=== PATIENT | male | born 1945 | race Caucasian/White ===

== ENCOUNTER 2016-08-31 06:53 | Inpatient (IN) | payer MEDICARE, BC ==
--- NOTE | 2016-08-30 01:56 | HP ---
HISTORY AND PHYSICAL: DATE OF ADMISSION: 08/31/16 CHIEF COMPLAINT: History and physical for a right total knee arthroplasty. HISTORY OF PRESENT ILLNESS: Mr. Haque is a 70-year-old male who presents with advanced arthritis of his right knee. He states that his pain is a 4/10. He states that he continues to have swelling in his knee. Walking for any sort of distance and stairs causes pain. He has failed conservative management and will proceed with elective right total knee arthroplasty. PAST MEDICAL HISTORY: Panic attacks, depression. PAST SURGICAL HISTORY: 1. T and A. 2. ORIF of the left arm. 3. Right knee arthroscopy. 4. Left knee total arthroplasty. MEDICATIONS: 1. ALYSA antiembolism stockings knee length, one pair of large strength 20 to 30 mmHg. 2. Lexapro 20 mg one by mouth every day. 3. Trazodone 100 mg one by mouth every night at bedtime. 4. Glucosamine chondroitin complex twice a day by mouth. 5. Vitamin 50,000 units one cap per week for 8 weeks. 6. Bacitracin polymyxin B 500-10,000 units per gram apply a thin half inch ribbon as directed 3 times a day for 7 days. ALLERGIES: KEFLEX. FAMILY HISTORY: Heart disease in father. Mother with diabetes and cancer and hypertension. Brother colon and liver cancer. SOCIAL HISTORY: The patient lives with his , currently working. Drinks occasionally only at social events. No tobacco or recreational drug use. REVIEW OF SYSTEMS: General: The patient denies any fevers, chills, or night sweats. No anesthesia problems. HEENT: Denies any headaches, lightheadedness , or syncopal episode. Cardiothoracic: Denies any chest pain, heart palpitations, or edema. Pulmonary: Denies any shortness of breath with exertion, chronic cough, or COPD. GI: Denies any nausea, vomiting, diarrhea, or constipation. : Denies any nocturia, urinary frequency, urinary urgency or kidney issues. MSK: Admits to right knee pain and denies any chronic or intermittent back pain or fractures. Neuro: Denies any paresthesias, numbness, seizures, stroke, or epilepsy. Integument: Denies any abrasions, lesions, rashes, bumps, or open sores. Endocrine: Denies any diabetes or thyroid issues. Hematology: Denies any easy bruising, anemia, or excessive bleeding. PHYSICAL EXAMINATION GENERAL: The patient is alert and oriented, appears in no acute distress. HEENT: Normocephalic and atraumatic. Hearing and vision are grossly intact. PULMONARY: Lungs are clear to auscultation bilaterally with no wheezes, rales, or rhonchi. CARDIO: Regular rate and rhythm with a normal S1 and S2. No appreciable S3 or S4. No murmurs, rubs, or gallops. GI: Normoactive bowel sounds is all 4 quadrants. No pain to palpation in all 4 quadrants. MSK: Right lower extremity, the patient's skin is intact. The patient has moderate effusion of the knee joint. He has active extension and range of motion 5 to 125 degrees of flexion. 5/5 ankle dorsiflexion and plantarflexion strength with full sensation to light touch in all nerve distributions with a 2 + palpable dorsalis pedis pulse. ASSESSMENT: Right knee osteoarthritis. PLAN: Mr. Haque is a 70-year-old gentleman with advanced arthritis in the right knee joint. Today, we discussed total knee arthroplasty. He has failed conservative treatment and is an appropriate candidate. He is scheduled for surgery on 08/31/16 for a right total knee arthroplasty. The patient had a prescription for Percocet sent to the pharmacy record for postoperative pain management. Scripts for Coumadin and postop DVT prophylaxis and Colace to be used as needed for constipation, also E-scripted. The patient will return in 10 to 14 days for suture removal and followup. An x-ray will be obtained at the followup visit. ANA REDMOND [id number]/[facility] #: [id number] EZEQUIEL
[~2016-08-31 06:53] MED LIST: Buffered Lidocaine 1% SYR 3ML* 3 ML/SYR SYRINGE INTRADERM ONE; Famotidine IV* 10 MG/ML 2 ML (20 mg) IV ONE
[2016-08-31] MEDS ORDERED: Famotidine IV* 10 MG/ML 2 ML (20 mg) ONE (07:30)
[2016-08-31] MEDS ORDERED: Clindamycin 900 MG IVPREMIX(* 900 MG/50 ML SDV IV ONE (07:30)
[2016-08-31] MEDS ORDERED: Buffered Lidocaine 1% SYR 3ML* 3 ML/SYR SYRINGE ONE (07:30)
[2016-08-31] MEDS ORDERED: Bupivacaine 0.5% W/EPI SDV* 30 ML VIAL ONE (07:34)
[2016-08-31] MEDS ORDERED: ROPIVACAINE 5 MG/ML 30 ML BTL (0.5%) ONE (08:16)
[2016-08-31] MEDS ORDERED: fentaNYL* 50 MCG/ML 2 ML VIAL (100 MCG VIAL) ONE (08:17)
[2016-08-31] MEDS ORDERED: Midazolam* 1 MG/ML 5 ML VIAL (5 MG) ONE (08:17)
[2016-08-31] MEDS ORDERED: Morphine PF AMP (0.5MG/ML)* 5 MG/10 ML AMP ONE (08:18)
[2016-08-31] MEDS ORDERED: KETAMINE HCL* 50 MG/ML 10 ML VIAL ONE (08:54)
[2016-08-31] MEDS ORDERED: Dexamethasone IV* 4 MG/ML 1 ML (4 MG) ONE (09:24)
[2016-08-31] MEDS ORDERED: Lidocaine 2% MPF* 2 ML VIAL ONE (09:24)
[2016-08-31] MEDS ORDERED: Propofol* 10 MG/ML 20 ML BTL IV PUSH ONE (09:24)
[2016-08-31] MEDS ORDERED: Ketorolac INJ* 30 MG/ML 1 ML VIAL ONE (09:24)
[2016-08-31] MEDS ORDERED: Ondansetron INJ* 2 MG/ML VIAL ONE (09:24)
[2016-08-31] MEDS ORDERED: DiMENhydriNATE IV* 50 MG/ML VIAL IV PUSH PRN ×2 (10:10→11:00)
[2016-08-31] MEDS ORDERED: HYDROmorphone INJ* 1 MG/ML CARPUJECT SYRINGE IV PRN (10:10)
[2016-08-31] MEDS ORDERED: oxyCODONE/Acetamin 5/325 MG* TAB PO PRN ×2 (10:10→10:21)
[2016-08-31] MEDS ORDERED: Naloxone* 0.4 MG/ML 1 ML VIAL IV PRN (10:21)
[2016-08-31] MEDS ORDERED: Nalbuphine* 20 MG/ML 1 ML VIAL IV PRN (10:21)
[2016-08-31] MEDS ORDERED: Gabapentin CAP(*) 300 MG PO SCH (11:00)
[2016-08-31] MEDS ORDERED: oxyCODONE TAB* 5 MG TAB PO PRN (11:41)
[2016-08-31] MEDS ORDERED: Acetaminophen TAB* 325 MG PO PRN (11:41)
[2016-08-31] MEDS ORDERED: diPHENhydraMINE PO* 25 MG PO PRN (11:41)
[2016-08-31] MEDS ORDERED: Morphine INJ* 2 MG/ML 1 ML CARPUJECT IV PRN (11:41)
[2016-08-31] MEDS ORDERED: Bisacodyl SUPP* 10 MG SUPP PR PRN (11:41)
[2016-08-31] MEDS ORDERED: Ondansetron INJ* 2 MG/ML VIAL IV PRN (11:41)
[2016-08-31] MEDS ORDERED: Gabapentin CAP(*) 300 MG ONE (11:44)
--- NOTE | 2016-08-31 13:50 | RAD ---
Indication: Right knee hemiarthroplasty. 2 views of the right knee demonstrates right knee replacement in satisfactory position. Components appear to be well seated. IMPRESSION: Right knee replacement in satisfactory position.
[2016-08-31] MEDS ORDERED: Warfarin TAB(*) 6 MG PO ONE (17:00)
[2016-08-31] MEDS: Clindamycin 600 MG IVPREMIX(* 600 MG/50 ML SDV IV SCH (17:25)
[2016-08-31] MEDS: Ibuprofen TAB* 600 MG PO SCH ×2 (17:26→22:50)
[2016-08-31] MEDS ORDERED: Bacitracin OPHTH.OINT* 3.5 GM SCH (18:00)
[2016-08-31] MEDS ORDERED: traZODone TAB* 100 MG PO SCH (18:00)
[2016-08-31] MEDS: Docusate CAP* 100 MG PO SCH (20:59)
[2016-08-31] MEDS: Bacitracin OPHTH.OINT* 3.5 GM SCH (22:50)
[2016-08-31] MEDS: traZODone TAB* 100 MG PO SCH (22:50)
[2016-09-01] MEDS: Clindamycin 600 MG IVPREMIX(* 600 MG/50 ML SDV IV SCH ×2 (01:16→09:12)
[2016-09-01] MEDS: oxyCODONE/Acetamin 5/325 MG* TAB PO PRN ×5 (01:20→20:14)
[2016-09-01] MEDS: Ibuprofen TAB* 600 MG PO SCH ×2 (05:36→11:30)
[2016-09-01 06:45] LABS: Hematocrit 31 % (42-52); Hemoglobin 10.7 g/dl (14.0-18.0)
[2016-09-01 06:58] LABS: BUN/Creatinine Ratio 21.9 (8-20); Calcium 7.9 mg/dL (8.6-10.3); EGFR African American 137.4 (>60); EGFR Non-African American 106.8 (>60); Potassium 3.7 mmol/L (3.5-5.0)
--- NOTE | 2016-09-01 07:43 | PN ---
Progress Note - Progress Note SOAP: Subjective: Pt. reports pain is controlled, he stood up yesterday. Objective: RLE - drain removed, tip intact, 400 ss drainage. Drain site draining mod amount fluid. mod effusion at knee joint. dressing changed. distally + df/pf , full sens lt, 2+ dp pulse. Vital Signs: Temp Pulse Resp BP Pulse Ox 97.4 F 63 18 91/50 97 09/01/16 03:23 09/01/16 03:23 09/01/16 05:36 09/01/16 03:23 09/01/16 03:23 Laboratory Results - last 24 hr 09/01/16 09/01/16 09/01/16 06:15 06:15 06:15 Hgb 10.7 L Hct 31 L INR (Anticoag Therapy) 1.37 H Sodium 136 Potassium 3.7 Chloride 103 Carbon Dioxide 30 Anion Gap 3 BUN 16 Creatinine 0.73 Est GFR ( Amer) 137.4 Est GFR (Non-Af Amer) 106.8 BUN/Creatinine Ratio 21.9 H Glucose 101 H Calcium 7.9 L Assessment: 70 yo M pod 1 s/p RTKA Plan: Nursing to reinforce dressing with compression at drain site if drainage continues. 6 mg coumadin tonight, lovenox bridge. PT/OT wbat
[2016-09-01] MEDS: Docusate CAP* 100 MG PO SCH ×2 (08:12→20:14)
[2016-09-01] MEDS: CMC:Escitalopram (NF) 10 MG TAB PO SCH (08:13)
[2016-09-01] MEDS: Vitamin THERAPEUTIC TAB PO SCH (08:14)
[2016-09-01] MEDS ORDERED: Enoxaparin(*) 40 MG/0.4 ML SYR SUBCUT SCH (10:00)
--- NOTE | 2016-09-01 15:11 | OP ---
DATE OF OPERATION: 08/31/16 - ROOM #347 DATE OF : 49 SURGEON: Sydney Lazar MD FLOAT BUILDER: ANA Stuart ANESTHESIOLOGIST: Dr. Marcus. ANESTHESIA: Spinal with adductor nerve block. PRE-OP DIAGNOSES: Right knee severe degenerative osteoarthritis and recurrent effusions. POST-OP DIAGNOSES: Right knee severe degenerative osteoarthritis, IT band chronic incompetence. OPERATIVE PROCEDURE: Right total knee arthroplasty. TOURNIQUET TIME: 68 minutes. ESTIMATED BLOOD LOSS: 250 cc. COMPLICATIONS: None. SPECIMEN: Bone and cartilage sent to pathology from the right knee joint. HARDWARE USED: [employer] cemented total knee hardware. For the femur, a size 6 right posterior stabilized Legion Oxinium femoral component. For the tibia, a size 6 right tibial baseplate. For the insert, a 13-mm constrained articular insert a size 5/6. For the patella, a 38 mm 3-peg all-poly patella. BRIEF HISTORY/INDICATION: Mr. Haque is a 70-year-old gentleman with years of increasingly severe right knee pain, instability, and effusion. Radiograph showed [id number] contact in the medial compartment. The patient had large effusions, however, an MRI showed intact extensive mechanism and ligaments. He elected to undergo right total knee arthroplasty due to continued pain and decreased quality of life. Informed consent was obtained from the patient. He understood the risks of surgery included, but were not limited to bleeding, infection, damage to nearby structures, continued pain, need for further surgery , intraoperative fracture, nerve palsy, hardware failure or loosening, stroke, heart attack, blood clot, and . He wished to proceed. INTRAOPERATIVE FINDINGS: Intraoperatively, the patient was noted to have severe degeneration with loss of all cartilage in the medial and patellofemoral compartments. The patient had some bony deformation along the medial tibial plateau from chronic wear. He was noted to have significant lateral laxity and likely chronic tear and incompetence of the IT band and lateral capsule. Preop range of motion was 10 to 120 degrees of flexion. Postop range of motion, full extension to 125 degrees of flexion. DESCRIPTION OF PROCEDURE: Mr. Haque was identified in the preanesthesia unit. His right lower extremity was marked as the correct operative site. Informed consent was signed and placed in the chart. The patient was taken to the operating room and placed under spinal anesthesia without difficulty. A Nixon catheter was placed. Tourniquet was placed on the right thigh. Right lower extremity was prepped and draped in the usual sterile fashion. Preop time -out was made to correctly identify the patient's side and site. Appropriate perioperative antibiotics were given within 1 hour of incision. Tourniquet was inflated and total tourniquet time for this procedure was 68 minutes. A 14-cm midline incision was made with skin knife and carried down to the extensor mechanism. Next, a medial parapatellar arthrotomy was made with 10 blade and the patella was subluxed laterally. It was immediately noted that there was large pseudocapsule along the entire knee joint. Electrocautery was used to remove significant amount of the pseudocapsule. There was no obvious purulence or sign of infection. Electrocautery was used to elevate soft tissue off the superomedial tibia to the mid sagittal plane. Large amount of osteophyte and bony deformation was removed with rongeur along the medial tibial plateau. The knee was flexed up. There was no ACL or meniscus. The drill was used to enter the distal femur. Intramedullary distal femoral cutting guide was then pinned into proper position and the oscillating saw was used to make the distal femoral cut. External rotation guide was placed on the distal femur and the femur was sized to a size 6. Size 6 multi-cutting jig was pinned out in the proper position on the distal femur. Oscillating saw was used to make the appropriate chamfer cuts. Any bony fragments were carefully removed. The PCL was completely released and the tibia was subluxed anteriorly. Extramedullary tibial cutting guide was used to make the proximal tibial cut perpendicular to the mechanical access of the tibia. Bone was carefully removed. The knee was brought into full extension. There was some tightness medially. Electrocautery was used to release some soft tissue along the medial tibial plateau. There was a significant amount of laxity laterally and upon further inspection, it was noted that the IT band and distal aspect of the IT band appeared to be incompetent. This appeared to be a chronic injury. The knee was in full extension with spacer block. The knee was flexed up. Lamina configuration manager was placed both medially and laterally. Any remaining meniscus was carefully removed with electrocautery. Posterior femoral condyles were checked for any osteophytes. A trial size 6 right femoral trial was impacted onto the distal femur. This had excellent fit. The box for the posterior stabilized implant was prepared using a reamer and box cut osteotome. A size 6 tibial tray trial with an 11-mm insert trial was chosen. Knee was taken through range of motion and had full extension with 125 degrees of flexion and good patellofemoral tracking. It was noted that there was some lateral laxity. Constrained liner trail was chosen and immediately the medial and lateral stability was improved significantly. Patella was everted and 9 mm of patellar cartilage was carefully removed. Patella was sized to a size 38. The 3 peg holes were drilled through the size 38 guide. Trial patella was placed and the knee was taken through range of motion. Patellofemoral tracking was satisfactory. All trials were carefully removed. Tibia was subluxed anteriorly. Tibia was sized to a size 6. Proximal tibia was prepared using the size 6 keel punch. All bony cut surfaces were copiously irrigated with sterile saline and dried. The final implants were cemented into place starting with the tibia followed by the femur and last the patella. A 13-mm trial was chosen, the knee was brought into full extension. Tourniquet was turned down at 68 minutes. Cement was allowed to fully cure. Posterior capsule was checked for any bleeding or excess cement. Final implant chosen was a 13 mm constrained articular insert. This was locked into position on the tibial tray without difficulty. Stability of the insert was checked and rechecked and noted to be stable. Medial and lateral balancing and stability was satisfactory. The knee was copiously irrigated with sterile saline. The extensor mechanism was closed over medium Hemovac drain using interrupted #1 Vicryl. The rest of the incision was closed in a layered fashion using 0 and 2-0 Vicryls. Skin was closed with 3-0 nylon. Sterile Xeroform, 4x4's, and Webril were used to cover the incision. James wrap and cold packs were placed over this. Intended DVT prophylaxis will be Coumadin with Lovenox bridge. Intended weightbearing will be weightbearing as tolerated. [id number]/[facility] #: [id number] EZEQUIEL
[2016-09-01] MEDS ORDERED: Warfarin TAB(*) 6 MG PO SCH (17:00)
[2016-09-01] MEDS: Bacitracin OPHTH.OINT* 3.5 GM SCH (22:15)
[2016-09-01] MEDS: traZODone TAB* 100 MG PO SCH (22:15)
[2016-09-02] MEDS: oxyCODONE/Acetamin 5/325 MG* TAB PO PRN ×3 (02:33→12:39)
[2016-09-02 07:30] LABS: Hematocrit 29 % (42-52)
--- NOTE | 2016-09-02 08:02 | PN ---
Progress Note - Progress Note SOAP: Subjective: []Patient seen OOB in chair. Doing well, pain well managed. Denies shortness of breath or chest pain. Hoping to go home tomorrow. Objective: Vital Signs Temp 97.7 F 09/02/16 03:39 Pulse 93 09/02/16 03:39 Resp 18 09/02/16 04:33 BP 131/76 09/02/16 03:39 Pulse Ox 96 09/02/16 03:39 Intake & Output 09/01/16 09/02/16 09/02/16 18:59 06:59 18:59 Intake Total 3913 1200 Output Total 280 950 Balance 3633 250 Intake: IV Fluids 2022 ABX - CLINDAMYCIN 103 LR 1920 Oral 1890 1200 Output: Urine 200 950 Nixon 80 Other: Estimated Void Small Vital Signs Temp 97.7 F 09/02/16 03:39 Pulse 93 09/02/16 03:39 Resp 18 09/02/16 04:33 BP 131/76 09/02/16 03:39 Pulse Ox 96 09/02/16 03:39 Intake & Output 09/01/16 09/02/16 09/02/16 18:59 06:59 18:59 Intake Total 3913 1200 Output Total 280 950 Balance 3633 250 Intake: IV Fluids 2022 ABX - CLINDAMYCIN 103 LR 1920 Oral 1890 1200 Output: Urine 200 950 Nixon 80 Other: Estimated Void Small []Right knee dressing dry, hemovac site drainage ceased. Calf is soft and non tender Catarina's negative +DF/PF neuro intact Assessment: []s/p right total knee arthroplasty POD#2 Plan: []Continue PT/OT WBAT On coumadin Discharge home tomorrow
[2016-09-02] MEDS: Docusate CAP* 100 MG PO SCH ×2 (08:34→21:51)
[2016-09-02] MEDS: Vitamin THERAPEUTIC TAB PO SCH (08:34)
[2016-09-02] MEDS: Magnesium Hydroxide LIQ* 30 ML UDC PO PRN ×2 (08:34→14:17)
[2016-09-02] MEDS: CMC:Escitalopram (NF) 10 MG TAB PO SCH (08:34)
[2016-09-02] MEDS ORDERED: Warfarin TAB(*) 2 MG PO ONE (17:00)
[2016-09-02] MEDS: traZODone TAB* 100 MG PO SCH (21:52)
[2016-09-02] MEDS: Bacitracin OPHTH.OINT* 3.5 GM SCH (21:52)
[2016-09-03 07:06] LABS: Hematocrit 31 % (42-52); Hemoglobin 10.6 g/dl (14.0-18.0)
[2016-09-03 07:51] VITALS: BP 141/60
--- NOTE | 2016-09-03 09:16 | PN ---
Progress Note - Progress Note SOAP: Subjective: POD #3 Right TKA. Doing well. Pain controlled with meds, denies CP/SOB or calf pain Objective: Vitals: Temp Pulse Resp BP Pulse Ox 98.4 F 92 18 141/60 98 02/03/17 07:47 02/03/17 07:47 02// 07:47 02/10/15 07:47 // 07:47 Gen: A&Ox3, NAD at rest RLE: Incision C/I. Small s/s weeping at distal incision. Mild edema. +f/e at MTPs and ankle. N/V intact Labs: Laboratory Results - last 24 hr 02/03/17 02// 06:49 06:49 Hgb 10.6 L Hct 31 L INR (Anticoag Therapy) 1.63 H Assessment: POD #3 Right TKA Plan: D/C home today INR 1.63, Coumadin 6mg 2/10/15, 4mg 09/04/16, 6 mg 09/05/16 F/u with Dr. Lazar 10-14 days post op
[2016-09-03] MEDS: Docusate CAP* 100 MG PO SCH (09:24)
[2016-09-03] MEDS: CMC:Escitalopram (NF) 10 MG TAB PO SCH (09:24)
[2016-09-03] MEDS: Vitamin THERAPEUTIC TAB PO SCH (09:24)
[2016-09-03] MEDS: oxyCODONE/Acetamin 5/325 MG* TAB PO PRN (09:25)
== END 2016-09-03 10:45 | disposition home health service (06) | DRG 470 ==
LOC: AA 06:53 → SSU 11:41
PROVIDERS: ADMIT Orthopaedic Surgery Adult Reconstructive Orthopaedic Surgery; ATTEND Orthopaedic Surgery Adult Reconstructive Orthopaedic Surgery
PROC: 0SRC0J9 Replacement of Right Knee Joint with Synthetic Substitute, Cemented, Open Approach (ICD-10-PCS; principal; 2016-08-31 08:30)
DX: M17.11 Unilateral primary osteoarthritis, right knee (principal); F32.9 Major depressive disorder, single episode, unspecified; F41.0 Panic disorder [episodic paroxysmal anxiety]; Z96.652 Presence of left artificial knee joint; Z88.2 Allergy status to sulfonamides; Z83.3 Family history of diabetes mellitus; Z82.49 Family history of ischemic heart disease and other diseases of the circulatory system; Z80.0 Family history of malignant neoplasm of digestive organs; M25.461 Effusion, right knee; K58.9 Irritable bowel syndrome, unspecified; N40.0 Benign prostatic hyperplasia without lower urinary tract symptoms
CPT/HCPCS: 36415; 80048; 85014; 85018; 85610; 88305; 88311; 94760; A9270-GY; C1776; J1100; J1650; J1885; J2250; J2405; J2704; J2795; J3010